=== PATIENT | male | born 1965 | race Caucasian/White ===

== ENCOUNTER 2022-10-18 14:28 | Emergency (ER) | payer BC ==
[~2022-10-18] VITALS: Ht 165.1 cm; Wt 86.2 kg
[2022-10-18 14:30] VITALS: BP 160/87
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
[2022-10-18] MEDS ORDERED: KETOROLAC 30 MG/ML VIAL IM ONE (14:55)
[2022-10-18] MEDS ORDERED: NAPR-1704 PO ×2 (16:40→16:55)
[2022-10-18] MEDS ORDERED: CAPS1ADH5 TP ×2 (16:40→16:55)
--- NOTE | 2022-10-18 16:47 | NUR ---
Patient discharged with v/s stable. Written and verbal after care instructions given and explained. Patient alert, oriented and verbalized understanding of instructions. Ambulatory with steady gait. All questions addressed prior to discharge. ID band removed. Patient advised to follow up with PMD. Rx of NAPROSYN, SALONPAS PATCHES given. Patient educated on indication of medication including possible reaction and side effects. Opportunity to ask questions provided and answered.
[2022-10-18 16:50] VITALS: BP 144/89
== END 2022-10-18 16:47 | disposition home or self-care (01) ==
LOC: MED 14:28
DX: S13.4XXA Sprain of ligaments of cervical spine, initial encounter (principal); S10.93XA Contusion of unspecified part of neck, initial encounter; S30.0XXA Contusion of lower back and pelvis, initial encounter; S80.02XA Contusion of left knee, initial encounter; E11.9 Type 2 diabetes mellitus without complications; I10 Essential (primary) hypertension; Z79.899 Other long term (current) drug therapy; Z98.890 Other specified postprocedural states; V53.5XXA Driver of pick-up truck or van injured in collision with car, pick-up truck or van in traffic accident, initial encounter; Y93.89 Activity, other specified; Y92.89 Other specified places as the place of occurrence of the external cause; Y99.8 Other external cause status
CPT/HCPCS: 72050; 73030; 73562; 96372; 99284; J1885